=== PATIENT | female | born 1995 | race Caucasian/White ===

== ENCOUNTER → 2020-06-04 13:23 | Outpatient (CLI) | payer OTHER, SELFPAY ==
--- NOTE | 2020-06-04 13:26 | ECG_ITS ---
APPROVED REPORT Exam: Resting ECG HR:87 bpm ECG Measurements Heart Rate 87 AXES NM 152 P 74 QRSd 78 QRS 73 QT 352 T 39 QTc 423 Conclusion Normal sinus rhythm Right atrial enlargement Borderline ECG Electronically signed by : Neville Zaldivar, 06/04/2020 18:43:12
== END ==
PROVIDERS: Visit Provider Nurse Practitioner Psychiatric/Mental Health
DX: Z79.899 Other long term (current) drug therapy (principal)
CPT/HCPCS: 93005

== ENCOUNTER → 2020-06-16 08:35 | Outpatient (CLI) | payer OTHER, SELFPAY ==
--- NOTE | 2020-06-16 08:54 | ECG_ITS ---
APPROVED REPORT Exam: Resting ECG HR:76 bpm ECG Measurements Heart Rate 76 AXES PA 154 P 57 QRSd 76 QRS 43 QT 368 T 22 QTc 414 Conclusion Normal sinus rhythm Left atrial abnormality Borderline ECG Electronically signed by : Neville Zaldivar, 06/16/2020 20:08:06
== END ==
PROVIDERS: Visit Provider Nurse Practitioner Psychiatric/Mental Health
DX: Z79.899 Other long term (current) drug therapy (principal)
CPT/HCPCS: 93005

== ENCOUNTER → 2020-07-22 09:15 | Outpatient (CLI) | payer OTHER, SELFPAY ==
--- NOTE | 2020-07-22 09:19 | XR_ITS ---
PROCEDURE: XR IVP W KUB CLINICAL INDICATION: RECURRENT UTI COMPARISON: No exams were available for comparison FINDINGS: Pitch Filler exam is unremarkable. There is prompt bilateral renal excretion of contrast. No hydronephrosis. No ureteral dilatation. The incompletely filled urinary bladder has an unremarkable appearance. There is only minimal postvoid residual urine in in the bladder. IMPRESSION: Minimal postvoid residual urine otherwise negative IVP Dictated by: Maco Sánchez MD 07/22/2020 18:15 Maco Sánchez MD in [place] 07/22/2020 18:15
== END ==
PROVIDERS: PCP Family Medicine; Visit Provider Family Medicine
DX: N39.0 Urinary tract infection, site not specified (principal)
CPT/HCPCS: 74400; Q9967

== ENCOUNTER 2020-10-11 13:01 | Emergency (ER) | payer OTHER, SELFPAY ==
[2020-10-11 13:02] VITALS: BP 132/82; PULSE 101; RESP 16; TEMP 37.2; O2SAT 97; BMI 25.0
[2020-10-11 13:30] VITALS: BP 132/82; PULSE 101; RESP 16; TEMP 37.2; O2SAT 97; BMI 24.9
--- NOTE | 2020-10-11 14:03 | HMH.EDUTC ---
[facility] [place] Clinical Impression: Sinusitis Qualifiers: Sinusitis location: unspecified location Chronicity: unspecified Qualified Code(s): J32.9 - Chronic sinusitis, unspecified Disposition: Home, Self-Care Condition on Discharge: Good Instructions: Sinusitis, DI for Sinusitis Additional Instructions: *Monitor Temp, Over the counter Motrin or Tylenol as directed/as needed Tylenol every 4 hours and Motrin every 6 hours (as long as your family doctor has told you that you can take it) for fever or pain. and straight to ER if unable to lower temp less than 101.0 after medication given *Warm salt water gargles may help to soothe the throat *Throat Lozenges *Warm fluids like tea with honey may help to soothe the throat *Sleep elevated *Humidifier/Vaporizer *Flonase 2 sprays in each nostril daily but be aware that it may take 2-3 days before you notice improvement *Follow up with your Family Doctor for further evaluation and examination for GI Collect stool and bring back to outpatient lab immediately upon collection for send out Return if needed Straight to ER if any life threatening symptoms Follow up IMMEDIATELY for new or worsening symptoms or no Noticeable improvement over the next 48-72 hours. 911 for difficulty breathing or swallowing Prescriptions: Amoxicillin/Potassium Clav [Augmentin 875-125 Tablet] 1 tab PO Q12H 7 Days #14 tab Transmission Status: Received by [id number] Fluticasone Propionate [Flonase 50mcg nasal spray 16gm] 1 spr NS DAILY #1 bottle Transmission Status: Received by [id number] Referrals: Cory Rinaldi MD [Primary Care Provider] - As needed Time of Disposition: 14:15 Medical Decision Making - Lenny Inquiry Pt receiving controlled substance: No Lenny was queried for this patient: No Vital Signs: 10/11/20 13:02 10/11/20 13:30 10/11/20 14:32 Temperature 99 F 99 F 0 F L Temperature Source Oral Oral Pulse Rate 0 L Pulse Rate [Radial] 101 H 101 H Respiratory Rate 16 16 0 L Blood Pressure 000/00 L Blood Pressure [Right Arm] 132/82 132/82 Blood Pressure Mean [Right Arm] 98 98 Blood Pressure Source [Right Arm] Automatic Cuff Blood Pressure Position [Right Arm] Sitting Sitting 02 Sat by Pulse Oximetry 97 97 Oxygen Delivery Method Room Air Orders (Tests/Meds): ORDERS Category Date Time Status Ova + Parasite Exam Routine Micro 10/11/20 14:30 Received Medical Decision Narrative: Discussed with patient and will order Ova and Parasite exam to test stool and discussed transfer to ED she advised and agreed thinks blood tinged mucous was from drainage from her sinuses and recommended follow up with PCP for further evaluation and examination due to stool and GI issues and patient agreed since it has been on and off for over a year [facility] [place] - General Stated complaint: spit up blood, cough Time Seen by Provider: 10/11/20 13:10 Mode of Arrival: Ambulatory Source of Information: Patient Limitations: No Limitations Description of Symptoms (Recalled from Triage Doc. by RN): pt c/o her stool being like mush with white worms in it. She states she never has regular bms. at night she feels like her stomach is rumbling leading to her having n/v. pt also states she has been having acid reflux. pt states, I tried to talk to my doctor about it but he just blew me off. . Pt also c/o a dry cough that is productive with clear sputum. one of the times there was a scant amount of blood in the mucous. HEENT Symptoms (Recalled from RN notes): No Resp Symptoms (Recalled from RN notes): Yes (productive cough with clear sputum and a scant amt of blood x1) Skin Symptoms (Recalled from RN notes): No MS Symptoms (Recalled from RN notes): No Functional Status (Recalled from RN notes): na - History of Present Illness Provider Complaint: Patient states that she has been having sinus congestion and pressure for about 2 weeks States that she feels like it is draining
[2020-10-11 14:32] VITALS: BP 000/00; PULSE 0; RESP 0; TEMP -17.7; TEMP 0
== END 2020-10-11 14:33 | disposition home or self-care (01) ==
LOC: UTC 13:13
PROVIDERS: Emergency Provider Nurse Practitioner; PCP Family Medicine
DX: J32.9 Chronic sinusitis, unspecified (principal); Z91.040 Latex allergy status; K21.9 Gastro-esophageal reflux disease without esophagitis; F17.210 Nicotine dependence, cigarettes, uncomplicated
CPT/HCPCS: 87177; 99202; G0463

== ENCOUNTER → 2021-08-30 08:56 | Outpatient (CLI) | payer OTHER, SELFPAY ==
[2021-08-30 12:40] LABS: HCG,Quantitative < 2 mIU/ml (0-5.42)
== END ==
PROVIDERS: Visit Provider Obstetrics & Gynecology
DX: N92.6 Irregular menstruation, unspecified (principal); Z34.90 Encounter for supervision of normal pregnancy, unspecified, unspecified trimester
CPT/HCPCS: 36415; 84702

== ENCOUNTER 2021-12-18 18:48 | Emergency (ER) | payer OTHER, SELFPAY ==
[2021-12-18 19:08] VITALS: BP 155/80; PULSE 105; RESP 16; TEMP 37.2; O2SAT 97; BMI 32.3
[2021-12-18 19:08] LABS: UTC Pregnancy Test, Urine Negative (Negative)
--- NOTE | 2021-12-18 19:14 | HMH.EDUTC ---
[facility] [place] Disposition Clinical Impression: Sciatic nerve pain Qualifiers: Laterality: right Qualified Code(s): M54.31 - Sciatica, right side Disposition: Home, Self-Care Condition on Discharge: Good Instructions: Sciatica, DI for Sciatica Additional Instructions: Activity: Decrease your activity. Do not lift heavy objects or twist your back Slowly return to your usual activity. Ice: Ice helps decrease swelling and pain. Use an ice pack, or put crushed ice in a plastic bag. Cover it with a towel and place it on your low back or leg for 15 to 20 minutes every hour or as directed. Heat: Heat helps decrease pain and muscle spasms. Apply heat on the area for 20 to 30 minutes every 2 hours for as many days as directed Warm soaks in tub with epson salt may help with pain and discomfort Start oral steriods tomorrow Over the counter Motrin or Naproxen may help with pain if your Doctor has said that you can take it Return if needed Straight to ER if any life threatening symptoms Prescriptions: predniSONE [Prednisone 20mg Tab] 20 mg PO BID #10 tab Transmission Status: Re[facility] by [facility] Referrals: Cory Rinaldi MD [Primary Care Provider] - As needed Forms: Work/School Release Medical Decision Making - Lenny Inquiry Pt receiving controlled substance: No Lenny was queried for this patient: No Vital Signs: 12/18/21 19:08 Temperature 99.0 F Temperature Source Oral Pulse Rate [Left] 105 H Respiratory Rate 16 Blood Pressure [Right Arm] 155/80 H Blood Pressure Mean [Right Arm] 105 02 Sat by Pulse Oximetry 97 - Lab Data Lab results reviewed: Yes: I reviewed the patient's lab results. Lab Results 12/18/21 19:03: Tst Clinic Negative Orders (Tests/Meds): ED MEDICATIONS Discontinued Medications Generic Name Dose Route Start Last Admin Trade Name Freq PRN Reason Stop Dose Admin Ketorolac Tromethamine 60 mg 12/18/21 19:17 12/18/21 19:26 Ketorolac 60mg/2ml Vial IM 12/18/21 19:18 60 mg ONCE ONE Administration Methylprednisolone Sodium Succinate 125 mg 12/18/21 19:17 12/18/21 19:26 Methylprednisolone Sod Succ 125mg Vial IM 12/18/21 19:18 125 mg ONCE ONE Administration [facility] [place] HPI - General Stated complaint: No accident hip and leg pain Time Seen by Provider: 12/18/21 19:14 Mode of Arrival: Ambulatory Source of Information: Patient Limitations: No Limitations Description of Symptoms (Recalled from Triage Doc. by RN): patient comes in with complaints of righthip pain that radiates down into leg. patient states that pain has been ongoing for 1.5 weeks HEENT Symptoms (Recalled from RN notes): No Resp Symptoms (Recalled from RN notes): No Skin Symptoms (Recalled from RN notes): No MS Symptoms (Recalled from RN notes): Yes Functional Status (Recalled from RN notes): n/a - History of Present Illness Provider Complaint: Patient states that she has been having pain in her right buttock area that comes around into her hip and down her upper leg for over a week State that pain is worse when she raises leg or moves certain ways Denies falling or known injury - Related Data Previous Rx's Medication Instructions Recorded alprazolam 0.25 mg tablet 0.25 mg PO BID PRN #60 tab 10/12/20 L norgest/E estradiol-E estrad 1 tab PO DAILY #84 tab 12/31/20 0.15 mg-30 mcg (84)/10 mcg(7) tabs,3mos cariprazine 3 mg capsule 3 mg PO DAILY #30 cap 10/27/21 doxepin 50 mg capsule 50 mg PO QHS #30 cap 10/27/21 vilazodone 20 mg tablet 20 mg PO DAILY 30 Days #30 tab 10/27/21 predniSONE [Prednisone 20mg 20 mg PO BID #10 tab 12/18/21 Tab] Allergies Allergy/AdvReac Type Severity Reaction Status Date / Time LATEX Allergy Intermediate I-RASH Uncoded 12/31/20 09:09 - Worker's Comp Is this a Worker's Comp case?: No [facility] History - Hepatitis A Screen Attestation statement:: This patient has been screened for Hepatitis A risk factors. I have reviewed the nando
[2021-12-18 19:35] VITALS: BP 155/80; PULSE 105; RESP 16; TEMP 37.2
== END 2021-12-18 19:37 | disposition home or self-care (01) ==
PROVIDERS: Emergency Provider Nurse Practitioner; PCP Family Medicine
DX: M54.31 Sciatica, right side (principal)
CPT/HCPCS: 81025; 96372; 99212; G0463

== ENCOUNTER → 2022-01-26 09:01 | Outpatient (CLI) | payer OTHER, SELFPAY ==
[2022-01-26 09:20] LABS: Basophils # 0.1 K/mm3 (0-0.2); Eosinophils # 0.2 K/mm3 (0.0-0.4); Eosinophils % 1.9 % (0.1-12.0); Hematocrit 46.5 % (37.0-47.0); Hemoglobin 14.1 g/dL (12.2-16.2); Lymphocytes # 1.6 K/mm3 (0.7-4.5); Lymphocytes % 16.3 % (10-50); Mean Corpuscular HGB Conc 30.4 g/dL (31.8-35.4); Mean Corpuscular Hemoglobin 28.6 pg (27.0-31.2); Mean Platelet Volume 7.4 fl (7.4-10.4); Monocytes # 0.4 K/mm3 (0.1-1.0); Monocytes % 4.4 % (1.7-9.3); Neutrophils # 7.5 K/mm3 (1.8-7.8); Neutrophils % 76.4 % (37.0-80.0); Platelet Count 452 K/mm3 (142-424); Red Blood Count 4.94 M/mm3 (4.20-5.40); Red Cell Distribution Width 14.3 % (11.5-17.5); White Blood Count 9.8 K/mm3 (4.8-10.8)
[2022-01-26 09:26] LABS: Hemoglobin A1C 5.5 % (4.0-6.0)
[2022-01-26 09:37] LABS: Alanine Aminotransferase 32 U/L (12-78); Albumin Level 3.7 g/dl (3.5-5.0); Albumin/Globulin Ratio 1.5 (1.1-1.8); Alkaline Phosphatase 141 U/L (38-126); Anion Gap 12.5 mEq/L (5-15); Aspartate Amino Transferase 31 U/L (14-36); Blood Urea Nitrogen 6 mg/dl (7-17); Carbon Dioxide 27 mmol/L (22.0-30.0); Chloride 106 mmol/L (98-107); Estimated Glomerular Filt Rate 100 ml/min (>60); GFR (African American) 121 ML/MIN (>60); Globulin 2.5 g/dL (1.3-3.2); Glucose 85 mg/dl (74-100); Potassium 4.5 mmoL/L (3.5-5.1); Sodium 141 mmol/L (136-145); Total Protein,Serum 6.2 g/dl (6.3-8.2)
[2022-01-26 09:51] LABS: Bilirubin,Total < 0.1 mg/dl (0.2-1.3)
[2022-01-26 10:00] LABS: Free Thyroxine Index 2.3 ug/dL (5.93-13.13); T4 (Thyroxine) 9.4 ug/dl (5.53-11.0); Triiodothryronine (T3) Uptake 24 % (23.5-40.5)
[2022-01-26 10:14] LABS: Thyroid Stimulating Hormone 1.47 uIU/mL (0.465-4.68)
[2022-01-26 10:46] LABS: Iron 52 ug/dL (37-170)
[2022-01-26 10:56] LABS: Total Iron Binding Capacity 391 ug/dL (265-497)
[2022-01-26 12:16] LABS: Vitamin B12 328 pg/mL (239-931)
[2022-02-06 22:07] LABS: 1,25 Dihydroxy Vitamin D 46 pg/mL (.); 1,25-Dihydroxy, Vitamin D-2 <10 pg/mL (.); 1,25-Dihydroxy, Vitamin D-3 46 pg/mL (.)
== END ==
PROVIDERS: PCP Family Medicine; Visit Provider Nurse Practitioner Psychiatric/Mental Health
DX: Z00.00 Encounter for general adult medical examination without abnormal findings (principal); Z79.899 Other long term (current) drug therapy
CPT/HCPCS: 36415; 80053; 82607; 82652; 83036; 83540; 83550; 84436; 84443; 84479; 85025

== ENCOUNTER 2022-03-18 10:38 | Emergency (ER) | payer OTHER, SELFPAY ==
[2022-03-18 12:10] VITALS: BP 117/74; PULSE 73; RESP 18; TEMP 36.6; O2SAT 100; BMI 35.3
--- NOTE | 2022-03-18 12:33 | EXP.UTC ---
Discharge Plan Disposition Patient Disposition: Home, Self-Care Condition: Good Prescriptions Prescriptions: New prednisone [prednisone] 20 mg tablet 20 mg PO BID 5 Days Qty: 10 0RF benzonatate 100 mg capsule 100 mg PO TID PRN (Reason: cough) Qty: 30 0RF amoxicillin-pot clavulanate 875-125 mg Tablet 1 tab PO Q12H Qty: 20 0RF No Action alprazolam [Xanax] 0.25 mg tablet 0.25 mg PO BID PRN (Reason: anxiety) Qty: 60 0RF Vraylar 3 mg capsule 3 mg PO DAILY Qty: 30 2RF doxepin 50 mg capsule 50 mg PO QHS Qty: 30 2RF vilazodone [Viibryd] 20 mg tablet 20 mg PO DAILY 30 Days Qty: 30 2RF Rx Instructions: must administer with a meal/food L norgest/e.estradiol-e.estrad [Seasonique] 0.15 mg-30 mcg (84)/10 mcg (7) tablets,dose pack,3 month 1 tab PO DAILY Qty: 182 0RF Referrals Follow up/Referrals: Cory Rinaldi MD [Primary Care Provider] - See instructions Activity Restrictions/Add. Instructions Additional Instructions/Restrictions: Start antibiotic today. Be sure to complete entire prescription even if feeling better Monitor temp. Tylenol every 4 hours as needed and / or ibuprofen every 6 hours as needed ( As long as your primary care physician has told you that it ok to take both. For fever/aches/pains ER if no less than 101 despite Tylenol or Motrin Humidifier/vaporizer or hot steamy shower *Tessalon Perles will not cause drowsiness but use at bedtime to help stop cough so that you may get some rest. *Start steroid today. Helps with inflammation therefore, cough and wheezing. Follow directions on the package. Reviewed side effects. Patient reports taking them before. Follow up IMMEDIATELY for new or worsening of symptoms OR no noticeable improvement over the next 48-72 hours. 911 immediately for any life threatening symptoms such as chest pain or difficulty breathing Clinical Impressions Clinical Impression: Sinusitis, Bronchitis Instructions Patient Instructions: DI for Sinusitis, Sinusitis, Acute Bronchitis Discharge ED Provider: Stephanie Mc [facility] General Stated complaint: Cough, congestion, drainage Mode of Arrival: Ambulatory Source of Information: Patient Limitations: No Limitations Time Seen by Provider: 03/18/22 12:33 Description of Symptoms (Recalled from Triage Doc. by RN): PATIENT C/O COUGH AND NASAL CONGESTION X 1 WEEK HEENT Symptoms (Recalled from RN notes): Yes Resp Symptoms (Recalled from RN notes): Yes Skin Symptoms (Recalled from RN notes): No MS Symptoms (Recalled from RN notes): No Functional Status (Recalled from RN notes): WNL History of Present Illness Provider Complaint: Patient states that she has been having sinus congestion and pressure with cough for well over a week States that she feels like it has moved into her chest and maybe have bronchtitis or something so she came in before it got worse Related Data Previous Rx's Medication Instructions Recorded alprazolam 0.25 mg tablet (Xanax) 0.25 mg PO BID PRN anxiety #60 tabs 10/12/20 cariprazine 3 mg capsule (Vraylar) 3 mg PO DAILY #30 caps 01/26/22 doxepin 50 mg capsule 50 mg PO QHS #30 caps 01/26/22 vilazodone 20 mg tablet (Viibryd) 20 mg PO DAILY 30 days #30 tabs 01/26/22 L norgest/E estradiol-E estrad 1 tab PO DAILY #182 tabs 02/13/22 0.15 mg-30 mcg (84)/10 mcg(7) tabs,3mos (Seasonique) amoxicillin 875 mg-potassium 1 tab PO Q12H #20 tabs 03/18/22 clavulanate 125 mg tablet benzonatate 100 mg capsule 100 mg PO TID PRN cough #30 caps 03/18/22 prednisone 20 mg tablet 20 mg PO BID 5 days #10 tabs 03/18/22 Allergies Allergy/AdvReac Type Severity Reaction Status Date / Time latex Allergy Verified 03/18/22 12:20 Worker's Comp Is this a Worker's Comp case?: No PFSH PFSH Medical History (Updated 03/18/22 @ 12:38 by Stephanie Mc APRN) Asthma Bipolar II disorder Migraine Urinary tract infection Surgical Histo
[2022-03-18 12:39] VITALS: BP 117/74; PULSE 73; RESP 18; TEMP 36.6; O2SAT 100
== END 2022-03-18 13:08 | disposition home or self-care (01) ==
PROVIDERS: Emergency Provider Nurse Practitioner; PCP Family Medicine
DX: J40 Bronchitis, not specified as acute or chronic (principal); F32.9 Major depressive disorder, single episode, unspecified
CPT/HCPCS: 99212; G0463

== ENCOUNTER 2023-03-12 08:01 | Emergency (ER) | payer OTHER, SELFPAY ==
[2023-03-12 08:15] VITALS: BP 130/86; PULSE 84; RESP 17; TEMP 36.9; O2SAT 99; BMI 32.6
--- NOTE | 2023-03-12 08:31 | EXP.UTC ---
Discharge Plan Disposition Patient Disposition: Home, Self-Care Condition: Good Prescriptions Prescriptions: New cefdinir 300 mg capsule 300 mg PO BID Qty: 20 0RF guaifenesin [Mucinex] 600 mg tablet extended release 12hr 1,200 mg PO BID PRN (Reason: cough) Qty: 20 0RF fluticasone propionate [Flonase Allergy Relief] 50 mcg/actuation spray,suspension 1 - 2 spray intranasal DAILY Qty: 16 0RF Rx Instructions: administer into each nostril No Action L norgest/e.estradiol-e.estrad [Seasonique] 0.15 mg-30 mcg (84)/10 mcg (7) Tablets,Dose Pack,3 Month 1 tab PO DAILY vilazodone 20 mg tablet 20 mg PO DAILY Patient Comments: TAKE ONE TABLET BY MOUTH EVERY DAY --TAKE WITH FOOD-- Vraylar 3 mg capsule 3 mg PO DAILY Patient Comments: TAKE ONE CAPSULE BY MOUTH EVERY DAY Referrals Follow up/Referrals: Cory Rinaldi MD [Primary Care Provider] - See instructions Activity Restrictions/Add. Instructions Additional Instructions/Restrictions: *Monitor Temp, Over the counter Motrin or Tylenol as directed/as needed Tylenol every 4 hours and Motrin every 6 hours (as long as your family doctor has told you that you can take it) for fever or pain. and straight to ER if unable to lower temp less than 101.0 after medication given *Warm salt water gargles may help to soothe the throat *Throat Lozenges? *Warm fluids like tea with honey may help to soothe the throat? *Sleep elevated *Humidifier/Vaporizer *Flonase 2 sprays in each nostril daily but be aware that it may take 2-3 days before you notice improvement Your throat swab was sent for culture. Those results are typically sent to your primary care. Be sure to follow up in 2-3 days with your family doctor/primary care physician if no improvement so they can review those result and treat if necessary. If you don?t have a primary care doctor, I recommend you get one but in the mean time, you will have to return to a walk in clinic Follow up IMMEDIATELY for new or worsening symptoms or no Noticeable improvement over the next 48-72 hours. 911 for difficulty breathing or swallowing *Increase fluids. Water not Soda or Tea *Be SURE to follow up anytime for new or worsening symptoms with your family doctor. AND in 48 hours for urine culture results with your family doctor, if you do not have a doctor then you may call back to the [facility] for urine culture results and further treatment. We do recommend that you choose and establish care with a Primary Care Physician. ?AND follow up with them ?in 10-14 days to repeat UA to ensure infection is resolved and blood no longer present *Be sure to let your PCP know that we sent urine cultures from the [facility] so they can follow up to ensure that you area the on the correct antibiotic Call your doctor office and make appointment for 48 hours (2 days from today) ?to follow up and get the results of your urine culture and further treatment Clinical Impressions Clinical Impression: Sinusitis Instructions Patient Instructions: DI for Sinusitis, Sinusitis, DI for Urinary Tract Infection (UTI), Urinary Tract Infection Discharge ED Provider: Stephanie Mc [facility] [place] HPI General Stated complaint: COUGHING GREEN STUFF, SORE THROAT Mode of Arrival: Ambulatory Source of Information: Patient Limitations: No Limitations Time Seen by Provider: 03/12/23 08:31 Description of Symptoms (Recalled from Triage Doc. by RN): PATIENT C/O COUGH WITH GREEN MUCOUS, SORE THROAT, FREQUENT URINATION AND LOW BACK PAIN X 2 DAYS HEENT Symptoms (Recalled from RN notes): Yes Resp Symptoms (Recalled from RN notes): Yes Skin Symptoms (Recalled from RN notes): No MS Symptoms (Recalled from RN notes): No Functional Status (Recalled from RN notes): WNL History of Present Illness Provider Complaint: Patient states that she thinks she may have a sinus infection and UTI states that she started feeling bad last w
[2023-03-12 08:47] LABS: Apearance,Urine Clear (Clear); Bilirubin,Urine Negative (Negative); Blood, Urine Trace (Negative); Color,Urine Dark Yellow (Yellow); Glucose,Urine (UA) Negative (Negative); Ketones,Urine Negative (Negative); PH,Urine 7.5 (5.0-8.5); Protein,Urine Trace (Negative); UTC Leukocyte Esterase,Urine 1+ (Negative); UTC Nitrate,Urine Negative (Negative); Urobilinogen,Urine 0.2 EU/dl (0.2)
[2023-03-12 08:48] LABS: UTC Strep Screen (Rapid) Negative (Negative)
[2023-03-12 08:50] VITALS: BP 130/86; PULSE 84; RESP 17; TEMP 36.9; O2SAT 99
== END 2023-03-12 08:56 | disposition home or self-care (01) ==
PROVIDERS: Emergency Provider Nurse Practitioner; PCP Family Medicine
DX: J01.90 Acute sinusitis, unspecified (principal); N39.0 Urinary tract infection, site not specified; F17.210 Nicotine dependence, cigarettes, uncomplicated; J45.909 Unspecified asthma, uncomplicated; F31.81 Bipolar II disorder
CPT/HCPCS: 81003; 87880; 99212; 99214; G0463

== ENCOUNTER 2023-04-21 12:41 | Emergency (ER) | payer OTHER, SELFPAY ==
[2023-04-21 13:10] VITALS: BP 147/78; PULSE 89; RESP 20; TEMP 36.5; O2SAT 97; BMI 36.1
--- NOTE | 2023-04-21 13:22 | EXP.UTC ---
Discharge Plan Disposition Patient Disposition: Home, Self-Care Condition: Good Prescriptions Prescriptions: New amoxicillin [amoxicillin] 500 mg tablet 500 mg PO TID 10 Days Qty: 30 0RF benzonatate [benzonatate] 100 mg capsule 100 mg PO TIDP PRN (Reason: Cough) Qty: 30 0RF No Action L norgest/e.estradiol-e.estrad [Daysee] 0.15 mg-30 mcg (84)/10 mcg (7) tablets,dose pack,3 month 1 tab PO DAILY Patient Comments: TAKE ONE TABLET BY MOUTH EVERY DAY DIRECTED vilazodone 20 mg tablet 20 mg PO DAILY Patient Comments: TAKE ONE TABLET BY MOUTH EVERY DAY --TAKE WITH FOOD-- Vraylar 3 mg capsule 3 mg PO DAILY Patient Comments: TAKE ONE CAPSULE BY MOUTH EVERY DAY Referrals Follow up/Referrals: Cory Rinaldi MD [Primary Care Provider] - See instructions Activity Restrictions/Add. Instructions Additional Instructions/Restrictions: Drink plenty of fluids. Take tylenol or ibuprofen for pain or fever. Take the medications as directed. Follow up with your regular doctor. GO TO THE ER FOR ANY WORSENING SYMPTOMS Clinical Impressions Clinical Impression: Pharyngitis, Exposure to 2019 novel coronavirus Instructions Patient Instructions: Strep Throat, DI for Strep Throat Discharge ED Provider: Hugo Camacho [facility] General Stated complaint: sore throat, cough, green phlem Time Seen by Provider: 04/21/23 13:22 History of Present Illness Provider Complaint: She states that for the past 2 days she has had a worsening sore throat. Related Data Home Medications Medication Instructions Recorded Confirmed L norgest/E estradiol-E estrad 1 tab PO DAILY 04/21/23 04/21/23 0.15 mg-30 mcg (84)/10 mcg(7) tabs,3mos (Daysee) cariprazine 3 mg capsule (Vraylar) 3 mg PO DAILY 04/21/23 04/21/23 vilazodone 20 mg tablet 20 mg PO DAILY 04/21/23 04/21/23 Previous Rx's Medication Instructions Recorded amoxicillin 500 mg tablet 500 mg PO TID 10 days #30 tabs 04/21/23 benzonatate 100 mg capsule 100 mg PO TIDP PRN Cough #30 caps 04/21/23 Allergies Allergy/AdvReac Type Severity Reaction Status Date / Time latex Allergy Verified 02/28/23 16:15 [facility] Disclaimer: The information contained in this section may have been updated after the patient was seen, as this information can be updated by other users. Medical History Asthma Bipolar II disorder Migraine Surgical History History of appendectomy History of surgery MRSA in armpit Family History Other Asthma Diabetes FHx: mental illness Substance abuse Social History Smoking Status: Current every day smoker alcohol intake: never substance use type: denies use current occupational status: employed and unemployed Travel in the last 8 weeks: None number of children: 1 ROS Obtained: Yes All systems reviewed & no additional complaints except as documented Constitutional Constitutional: Reports chills and Reports fever(s) Eyes Eyes: Denies eye discharge ENT Ears, Nose, Mouth, and Throat: Reports as per HPI Cardiovascular Cardiovascular: Denies chest pain Respiratory Respiratory: Denies chest congestion and Reports cough Gastrointestinal Gastrointestingal: Reports nausea; Denies abdominal pain, constipation, cramping, diarrhea or vomiting Musculoskeletal Musculoskeletal: Denies arthralgias Integumentary/Breasts Skin/Breast: Denies rash Neurologic Neurologic: Denies paresthesias Physical Exam General General appearance: alert and in no apparent distress Head Head exam: atraumatic, normocephalic and normal inspection Eye Eye exam: Present normal appearance, PERRL and EOMI ENT ENT exam: Present mucous membranes moist and normal external ear exam Expanded EN
[2023-04-21 13:31] LABS: UTC Strep Screen (Rapid) Negative (Negative)
[2023-04-21 13:47] VITALS: BP 147/78; PULSE 89; RESP 20; TEMP 36.5; O2SAT 97
== END 2023-04-21 13:59 | disposition home or self-care (01) ==
PROVIDERS: Emergency Provider Nurse Practitioner Family; PCP Family Medicine
DX: J02.9 Acute pharyngitis, unspecified (principal); R05.9 Cough, unspecified; R09.89 Other specified symptoms and signs involving the circulatory and respiratory systems; R50.9 Fever, unspecified; R11.0 Nausea; Z20.822 Contact with and (suspected) exposure to COVID-19; F17.210 Nicotine dependence, cigarettes, uncomplicated; J45.909 Unspecified asthma, uncomplicated; Z20.818 Contact with and (suspected) exposure to other bacterial communicable diseases
CPT/HCPCS: 87635; 87880; 99212; 99214; G0463

== ENCOUNTER 2023-09-19 14:13 | Outpatient (CLI) | payer OTHER, SELFPAY ==
--- NOTE | 2023-09-19 14:13 | US_ITS ---
PROCEDURE: US TRANSVAGINAL CLINICAL INDICATION: Pelvic Pain/Endometriosis COMPARISON: No exams were available for comparison FINDINGS: Transvaginal sonographic images of the pelvis were obtained. UTERUS: 8.4cm x 3.9 cmx 4.1cm anteverted with a combined endometrial thickness of 7.4mm. There is a posterior fibroid measuring 2.6 cm x 2.0 cm x 2.2 cm. There is a nabothian cyst in the cervix. LEFT OVARY: 2.6 cmx1.8 cmx2.1cm with a volume of 5ml. There is a follicle measuring 1.1 cm x 0.9 cm x 1.2 cm. RIGHT OVARY: 2.1cmx 1.7 cmx1.2cm with a volume of 2.2ml. There are multiple small follicles in the right ovary. Both ovaries are seen and appear normal. Doppler flow to both ovaries are seen. There is no fluid in the cul-de-sac. IMPRESSION: 1. Anteverted uterus normal in shape and size. The endometrium is normal. 2. There appears to be a posterior fibroid measuring 2.6 cm. 3. Both left and right ovaries are seen and appear normal. There is a 1.2 cm follicle in the left ovary. 4. No fluid in the cul-de-sac. Dictated by: Sergio Ge MD 09/19/2023 16:00 Sergio Ge MD in [place] 09/19/2023 16:00
[2023-09-19 15:31] LABS: Thyroid Stimulating Hormone 2.55 uIU/mL (0.465-4.68)
== END 2023-09-19 23:59 | disposition home or self-care (01) ==
LOC: RAD 14:13
PROVIDERS: PCP Obstetrics & Gynecology; Visit Provider Obstetrics & Gynecology
DX: R10.2 Pelvic and perineal pain (principal); N80.9 Endometriosis, unspecified
CPT/HCPCS: 36415; 76830; 84443

== ENCOUNTER 2023-09-26 09:21 | Emergency (ER) | payer OTHER, SELFPAY ==
[2023-09-26 09:25] VITALS: BP 116/64; PULSE 80; RESP 18; TEMP 36.9; O2SAT 100; BMI 37.4
--- NOTE | 2023-09-26 09:35 | ED_ITS ---
Discharge Plan Disposition Patient Disposition: Home, Self-Care Condition: Good Prescriptions Prescriptions: New azithromycin [Zithromax] 250 mg tablet 250 mg PO UD DOSE PK Qty: 6 0RF Rx Instructions: Take two (2) tablets today, then one (1) tablet days #2 thru #5 methylprednisolone 4 mg Tablets,Dose Pack 4 mg PO DIRECTED 6 Days Qty: 21 0RF Rx Instructions: Take 1 pack as directed for 6 days ioiclgdjdvfggmi-nhhdxcvty-BS [Bromfed DM] 2-30-10 mg/5 mL Syrup 5 ml PO Q6H PRN (Reason: Cough) Qty: 240 0RF No Action Orilissa 150 mg tablet 150 mg PO DAILY Qty: 30 2RF Vraylar 3 mg capsule 3 mg PO DAILY Qty: 90 1RF vilazodone 20 mg tablet 20 mg PO DAILY Qty: 90 1RF L norgest/e.estradiol-e.estrad [Simpesse] 0.15 mg-30 mcg (84)/10 mcg (7) tablets,dose pack,3 month 1 tab PO DAILY Patient Comments: TAKE ONE TABLET BY MOUTH EVERY DAY DIRECTED Referrals Follow up/Referrals: Cory Rinaldi MD [Primary Care Provider] - See instructions Activity Restrictions/Add. Instructions Additional Instructions/Restrictions: Drink plenty of fluids. Take tylenol or ibuprofen for pain or fever. Take the medications as directed. Follow up with your regular doctor. GO TO THE ER FOR ANY WORSENING SYMPTOMS Clinical Impressions Clinical Impression: Bronchitis, Sinusitis Stand Alone Forms Stand Alone Forms: Work/School Release Instructions Patient Instructions: Sinusitis, DI for Sinusitis Discharge ED Provider: Hugo Camacho [facility] General Stated complaint: sore throat Time Seen by Provider: 09/26/23 09:32 History of Present Illness Provider Complaint: She states that for the past 2 days she has had sore throat, sinus congestion, and a cough. Related Data Home Medications Medication Instructions Recorded Confirmed L norgest/E estradiol-E estrad 1 tab PO DAILY 09/26/23 09/26/23 0.15 mg-30 mcg (84)/10 mcg(7) tabs,3mos (Simpesse) Previous Rx's Medication Instructions Recorded cariprazine 3 mg capsule (Vraylar) 3 mg PO DAILY #90 caps 08/10/23 vilazodone 20 mg tablet 20 mg PO DAILY #90 tabs 08/10/23 elagolix 150 mg tablet (Orilissa) 150 mg PO DAILY #30 tabs 09/18/23 azithromycin 250 mg tablet 250 mg PO UD DOSE PK #6 tabs 09/26/23 (Zithromax) lqcbczwigtdntln-xpmvijhxixzpsww-HT 5 ml PO Q6H PRN Cough #240 mL 09/26/23 2 mg-30 mg-10 mg/5 mL oral syrup (Bromfed DM) methylprednisolone 4 mg tablets in 4 mg PO DIRECTED 6 days #21 tabs 09/26/23 a dose pack Allergies Allergy/AdvReac Type Severity Reaction Status Date / Time latex Allergy Verified 09/26/23 09:37 [facility] Disclaimer: The information contained in this section may have been updated after the patient was seen, as this information can be updated by other users. Medical History (Updated 09/26/23 @ 10:18 by Hugo Camacho APRN) Endometriosis Migraine Asthma Bipolar II disorder Surgical History H/O cystoscopy History of surgery History of appendectomy Family History Other Asthma Diabetes FHx: mental illness Substance abuse Social History Smoking Status: Current every day smoker alcohol intake: never substance use type: denies use current occupational status: employed and unemployed Travel in the last 8 weeks: None number of children: 1 ROS Obtained: Yes All systems reviewed & no additional complaints except as documented Constitutional Constitutional: Reports chills and Reports fever(s) Eyes Eyes: Denies eye discharge ENT Ears, Nose, Mouth, and Throat: Reports as per HPI Cardiovascular Cardiovascular: Denies chest pain Respiratory Respiratory: Denies chest congestion and Reports cough Gastrointestinal Gastrointestingal: Reports nausea; Denies abdominal pain, constipation, cramping, diarrhea or vomiting Musculoskeletal Musculoskeletal: Denies arthralgias Integumentary/Breasts Skin/Breast: Denies rash Neurologic Neurologic: Denies paresthesias Physical Exam General General appearance: alert and in no apparent distress Head Head exam: atraumatic, normocephalic and normal inspection Eye Eye exam: Present normal appearance, PERRL and EOMI ENT ENT exam: Present mucous membranes moist and normal external ear exam Expanded ENT Exam TM/Canal exam: Bilateral TM: erythema and bulging Nose exam: Absent sinus tenderness Mouth exam: Present normal external inspection; Absent drooling Teeth exam: Present normal inspection Throat exam: Present tonsillar erythema, tonsillomegaly and tonsillar exudate Neck Neck exam: Present normal inspection, full ROM and trachea midline; Absent tenderness, meningismus or lymphadenopathy Chest Chest inspection: Present normal inspection and symmetric chest wall rise; Absent tenderness Respiratory Respiratory exam: Present normal lung sounds bilaterally; Absent respiratory distress, wheezes or stridor Cardiovascular Cardiovascular exam: Present regular rate and normal rhythm; Absent systolic murmur or diastolic murmur Abdominal Exam Abdominal exam: Present soft and normal bowel sounds; Absent distention, tenderness, guarding, rebound or rigidity Extremities Exam Extremities exam: Present normal inspection and normal capillary refill; Absent calf tenderness Back Exam Back exam: Present normal inspection and full ROM; Absent tenderness, CVA tenderness (R) or CVA tenderness (L) Neurological Exam Neurological exam: Present alert, oriented X3 and CN II-XII intact Psychiatric Psychiatric exam: Present normal affect and normal mood Skin Skin exam: Present warm, dry, intact and normal color Medical Decision Making Medical Records Medical records reviewed: No I reviewed the patient's medical records. Lenny Inquiry Pt receiving controlled substance: No Lab Data Lab results reviewed: Yes I reviewed the patient's lab results.
[2023-09-26 09:41] LABS: UTC Strep Screen (Rapid) Negative (Negative)
[2023-09-26 10:23] VITALS: BP 116/64; PULSE 80; RESP 18; TEMP 36.9; O2SAT 100
== END 2023-09-26 10:23 | disposition home or self-care (01) ==
PROVIDERS: Emergency Provider Nurse Practitioner Family; PCP Family Medicine
DX: J40 Bronchitis, not specified as acute or chronic (principal); J01.90 Acute sinusitis, unspecified; J02.9 Acute pharyngitis, unspecified; R09.81 Nasal congestion; R05.9 Cough, unspecified; N80.9 Endometriosis, unspecified; G43.909 Migraine, unspecified, not intractable, without status migrainosus; F31.9 Bipolar disorder, unspecified; F17.210 Nicotine dependence, cigarettes, uncomplicated
CPT/HCPCS: 87880; 99212; 99214; G0463

== ENCOUNTER 2024-02-10 13:19 | Emergency (ER) | payer OTHER, SELFPAY ==
[2024-02-10 13:31] VITALS: BP 124/72; PULSE 91; RESP 20; TEMP 36.7; O2SAT 99; BMI 34.5
--- NOTE | 2024-02-10 13:36 | EXP.UTC ---
Discharge Plan Disposition Patient Disposition: Home, Self-Care Condition: Good Prescriptions Prescriptions: New amoxicillin 875 mg tablet 875 mg PO Q12H Qty: 20 0RF methylprednisolone 4 mg Tablets,Dose Pack 4 mg PO DIRECTED 6 Days Qty: 21 0RF Rx Instructions: Take 1 pack as directed for 6 days qqxokperytodkuo-yojrytnum-AI [Bromfed DM] 2-30-10 mg/5 mL Syrup 5 ml PO Q6H PRN (Reason: Cough) Qty: 240 0RF No Action vilazodone 20 mg tablet 20 mg PO DAILY Patient Comments: TAKE 1 TABLET BY MOUTH ONCE DAILY Vraylar 3 mg capsule 3 mg PO DAILY Patient Comments: TAKE 1 CAPSULE BY MOUTH ONCE DAILY Orilissa 150 mg tablet 150 mg PO DAILY Patient Comments: TAKE 1 TABLET BY MOUTH ONCE DAILY Referrals Follow up/Referrals: Cory Rinaldi MD [Primary Care Provider] - See instructions Activity Restrictions/Add. Instructions Additional Instructions/Restrictions: Drink plenty of fluids. Take tylenol or ibuprofen for pain or fever. Take the medications as directed. Follow up with your regular doctor. GO TO THE ER FOR ANY WORSENING SYMPTOMS Clinical Impressions Clinical Impression: Sinusitis Stand Alone Forms Stand Alone Forms: Work/School Release Instructions Patient Instructions: Sinusitis, DI for Sinusitis Print Language Print Language: Yi Discharge ED Provider: Hugo Camacho [facility] General Stated complaint: cough, sore throat Mode of Arrival: Ambulatory Source of Information: Patient Time Seen by Provider: 02/10/24 13:36 Description of Symptoms (Recalled from Triage Doc. by RN): SORE THROAT, COUGH AND GREEN NASAL DRAINAGE HEENT Symptoms (Recalled from RN notes): Yes Resp Symptoms (Recalled from RN notes): Yes Skin Symptoms (Recalled from RN notes): No MS Symptoms (Recalled from RN notes): No Functional Status (Recalled from RN notes): wnl Related Data Home Medications ?Medication ?Instructions ?Recorded ?Confirmed cariprazine 3 mg capsule (Vraylar) 3 mg PO DAILY 02/10/24 02/10/24 elagolix 150 mg tablet (Orilissa) 150 mg PO DAILY 02/10/24 02/10/24 vilazodone 20 mg tablet 20 mg PO DAILY 02/10/24 02/10/24 Previous Rx's ?Medication ?Instructions ?Recorded amoxicillin 875 mg tablet 875 mg PO Q12H #20 tabs 02/10/24 iosfdguwkeivfpa-pfrkrbckobwrvzh-HV 5 ml PO Q6H PRN Cough #240 mL 02/10/24 2 mg-30 mg-10 mg/5 mL oral syrup (Bromfed DM) methylprednisolone 4 mg tablets in 4 mg PO DIRECTED 6 days #21 tabs 02/10/24 a dose pack Allergies Allergy/AdvReac Type Severity Reaction Status Date / Time latex Allergy Verified 02/05/24 13:57 Worker's Comp Is this a Worker's Comp case?: No [facility] Disclaimer: The information contained in this section may have been updated after the patient was seen, as this information can be updated by other users. Medical History Endometriosis Migraine Asthma Bipolar II disorder Surgical History H/O cystoscopy right ovary History of surgery MRSA in armpit History of appendectomy Family History Other Asthma Diabetes FHx: mental illness Substance abuse Social History Smoking Status: Current every day smoker alcohol intake: never substance use type: denies use current occupational status: employed and unemployed Travel in the last 8 weeks: None number of children: 1 ROS Obtained: Yes All systems reviewed & no additional complaints except as documented Constitutional Constitutional: Reports poor appetite Eyes Eyes: Reports system reviewed and no additional complaints, except as documented ENT Ears, Nose, Mouth, and Throat: Reports as per HPI Cardiovascular Cardiovascular: Reports system reviewed and no additional complaints, except as documented and Denies chest pain Respiratory Respiratory: Denies shortness of breath, Denies chest congestion, Reports cough, Denies stridor and Denies wheezing Gastrointestinal Gastrointestingal: Reports system reviewed and no additional complaints, except as documented; Denies abdominal pain, diarrhea or vomiting Musculoskeletal Musculoskeletal: Reports system reviewed and no additional complaints, except as documented and Denies arthralgias Integumentary/Breasts Skin/Breast: Reports system reviewed and no additional complaints, except as documented and Denies rash Neurologic Neurologic: Denies paresthesias Allergic/Immunologic Allergic/Immunologic: Denies wheezing Physical Exam General General appearance: alert and in no apparent distress Eye Eye exam: Present normal appearance, PERRL and EOMI ENT ENT exam: Present mucous membranes moist and normal external ear exam Expanded ENT Exam External ear exam: Present normal external inspection TM/Canal exam: Bilateral TM: erythema and bulging Nose exam: Absent sinus tenderness Nasal speculum exam: Bilateral: normal Mouth exam: Present normal external inspection; Absent drooling Teeth exam: Present normal inspection Throat exam: Present tonsillar erythema and tonsillomegaly Neck Neck exam: Present normal inspection, full ROM and trachea midline; Absent tenderness, lymphadenopathy or thyromegaly Chest Chest inspection: Present normal inspection and symmetric chest wall rise; Absent tenderness or rash Respiratory Respiratory exam: Present normal lung sounds bilaterally; Absent respiratory distress, wheezes, stridor or accessory muscle use Cardiovascular Cardiovascular exam: Present regular rate, normal rhythm and normal heart sounds Abdominal Exam Abdominal exam: Present soft; Absent distention, tenderness, guarding, rebound or rigidity Extremities Exam Extremities exam: Present normal inspection, full ROM and normal capillary refill; Absent tenderness or calf tenderness Back Exam Back exam: Present normal inspection and full ROM; Absent tenderness Neurological Exam Neurological exam: Present alert and oriented X3 Psychiatric Psychiatric exam: Present normal affect and normal mood Skin Skin exam: Present warm, dry, intact and normal color Lymphatic Lymphatic Findings: no adenopathy Medical Decision Making Medical Records Medical records reviewed: No I reviewed the patient's medical records. Screening: Per USPSTF and CDC recommendations, given the prevalence of disease in our region, it is our hospital?s policy to screen for HIV and viral Hepatitis for all patients aged 18 and over and those with ongoing risk factors. Lenny Inquiry Pt receiving controlled substance: No Vital Signs: 02/10/24 13:31 Temperature 98.1 F Temperature Source Oral Pulse Rate [Left Radial] 91 H Respiratory Rate 20 Blood Pressure [Left Arm] 124/72 Blood Pressure Mean [Left Arm] 89 02 Sat by Pulse Oximetry 99 Lab Data Lab results reviewed: Yes I reviewed the patient's lab results.
[2024-02-10 13:42] LABS: UTC Strep Screen (Rapid) Negative (Negative)
[2024-02-10 14:00] VITALS: BP 124/72; PULSE 91; RESP 20; TEMP 36.7
== END 2024-02-10 14:03 | disposition home or self-care (01) ==
PROVIDERS: Emergency Provider Nurse Practitioner Family; PCP Family Medicine
DX: J01.90 Acute sinusitis, unspecified (principal)
CPT/HCPCS: 87880; 99213; G0381

== ENCOUNTER 2024-06-11 08:02 | Emergency (ER) | payer OTHER, SELFPAY ==
[2024-06-11 08:15] VITALS: BP 112/57; PULSE 68; RESP 18; TEMP 36.9; O2SAT 98; BMI 40.1
--- NOTE | 2024-06-11 08:35 | EXP.UTC ---
Discharge Plan Disposition Patient Disposition: Home, Self-Care Condition: Good Prescriptions Prescriptions: New benzonatate 100 mg capsule 100 mg PO TID PRN (Reason: cough) Qty: 30 0RF methylprednisolone [Medrol (Tank)] 4 mg tablets,dose pack See Rx Instructions .Route .COMPLEX 6 Days Qty: 21 0RF Rx Instructions: taper pack; amoxicillin-pot clavulanate 875-125 mg Tablet 1 tab PO Q12H Qty: 20 0RF No Action vilazodone 20 mg tablet 20 mg PO DAILY Patient Comments: TAKE 1 TABLET BY MOUTH ONCE DAILY Vraylar 3 mg capsule 3 mg PO DAILY Patient Comments: TAKE 1 CAPSULE BY MOUTH ONCE DAILY L norgest/e.estradiol-e.estrad [Seasonique] 0.15 mg-30 mcg (84)/10 mcg (7) Tablets,Dose Pack,3 Month 1 tab PO DAILY Referrals Follow up/Referrals: Cory Rinaldi MD [Primary Care Provider] - See instructions Activity Restrictions/Add. Instructions Additional Instructions/Restrictions: Start antibiotic today. Be sure to complete entire prescription even if feeling better Monitor temp. Tylenol every 4 hours as needed and / or ibuprofen every 6 hours as needed ( As long as your primary care physician has told you that it ok to take both. For fever/aches/pains ER if no less than 101 despite Tylenol or Motrin Humidifier/vaporizer or hot steamy shower *Tessalon Perles will not cause drowsiness but use at bedtime to help stop cough so that you may get some rest. *Start steroid today. Helps with inflammation therefore, cough and wheezing. Follow directions on the package. Reviewed side effects. Patient reports taking them before. Follow up IMMEDIATELY for new or worsening of symptoms OR no noticeable improvement over the next 48-72 hours. 911 immediately for any life threatening symptoms such as chest pain or difficulty breathing Clinical Impressions Clinical Impression: Bronchitis, Sinusitis Instructions Patient Instructions: DI for Sinusitis, Sinusitis Print Language Print Language: Colombian Discharge ED Provider: Stephanie Mc [facility] HPI General Stated complaint: sore throat, coughing up green mucus, congestion Mode of Arrival: Ambulatory Source of Information: Patient Limitations: No Limitations Time Seen by Provider: 06/11/24 08:35 Description of Symptoms (Recalled from Triage Doc. by RN): PATIENT C/O COUGH WITH GREEN MUCOUS AND SORE THROAT SINCE YESTERDAY HEENT Symptoms (Recalled from RN notes): Yes Resp Symptoms (Recalled from RN notes): Yes Skin Symptoms (Recalled from RN notes): No MS Symptoms (Recalled from RN notes): No Functional Status (Recalled from RN notes): WNL History of Present Illness Provider Complaint: Patient states that she has been having sinus issues States that they have got worse since yesterday and now at times coughing up thick greenish colored mucous like she does when she has bronchitis so she came in to get checked Related Data Home Medications ?Medication ?Instructions ?Recorded ?Confirmed cariprazine 3 mg capsule (Vraylar) 3 mg PO DAILY 02/10/24 06/11/24 vilazodone 20 mg tablet 20 mg PO DAILY 02/10/24 06/11/24 L norgest/E estradiol-E estrad 1 tab PO DAILY 06/11/24 06/11/24 0.15 mg-30 mcg (84)/10 mcg(7) tabs,3mos Previous Rx's ?Medication ?Instructions ?Recorded amoxicillin 875 mg-potassium 1 tab PO Q12H #20 tabs 06/11/24 clavulanate 125 mg tablet benzonatate 100 mg capsule 100 mg PO TID PRN cough #30 caps 06/11/24 methylprednisolone 4 mg tablets in See Rx Instructions .Route 06/11/24 a dose pack (Medrol (Tank)) .COMPLEX 6 days #21 tabs Allergies Allergy/AdvReac Type Severity Reaction Status Date / Time latex Allergy Verified 02/05/24 13:57 Worker's Comp Is this a Worker's Comp case?: No [facility] Disclaimer: The information contained in this section may have been updated after the patient was seen, as this information can be updated by other users. Medical History Endometriosis Migraine Asthma Bipolar II disorder Surgical History H/O cystoscopy right ovary History of surgery MRSA in armpit History of appendectomy Family History Other Asthma Diabetes FHx: mental illness Substance abuse Social History Smoking Status: Current every day smoker alcohol intake: never substance use type: denies use current occupational status: employed and unemployed Travel in the last 8 weeks: None number of children: 1 Have you lived/traveled outside [place] in past 30 days?: No Contact w/someone who lives/traveled outside [place] past 30 days?: No Exposure to someone with infectious disease in past 14 days?: No Do you have a fever (greater than 100.4 F or 38 C)?: No Have you tested positive for COVID-19: No Exposed to someone with COVID-19 in past 14 days?: No Do you have a sore throat?: Yes Do you have a cough?: Yes Do you have any weakness?: No Do you have any diarrhea?: No Are you experiencing any unusual bleeding?: No Do you have any muscle aches/pain?: No Do you have any abdominal pain?: No Are you experiencing loss of taste or smell?: No ROS Obtained: Yes All systems reviewed & no additional complaints except as documented and Yes Systems reviewed as appropriate & no additional complaints except as documented Constitutional Constitutional: Reports system reviewed and no additional complaints, except as documented, Reports as per HPI and Reports headache(s) ENT Ears, Nose, Mouth, and Throat: Reports system reviewed and no additional complaints, except as documented, Reports as per HPI, Reports headache(s), Reports sinus pain and Reports sinus pressure Cardiovascular Cardiovascular: Reports system reviewed and no additional complaints, except as documented and Reports as per HPI Respiratory Respiratory: Reports system reviewed and no additional complaints, except as documented, Reports as per HPI, Denies shortness of breath, Reports chest congestion, Reports cough, Denies pain with cough and Denies wheezing Gastrointestinal Gastrointestingal: Reports system reviewed and no additional complaints, except as documented and as per HPI Neurologic Neurologic: Reports headache(s) Allergic/Immunologic Allergic/Immunologic: Denies wheezing Physical Exam General General appearance: alert and in no apparent distress ENT ENT exam: Present mucous membranes moist Expanded ENT Exam Nose exam: Present sinus tenderness Throat exam: Present other (PND ) Respiratory Respiratory exam: Present normal lung sounds bilaterally; Absent respiratory distress or wheezes Cardiovascular Cardiovascular exam: Present regular rate, normal rhythm and normal heart sounds Abdominal Exam Abdominal exam: Present soft and normal bowel sounds; Absent distention or tenderness Neurological Exam Neurological exam: Present alert, oriented X3 and normal gait Medical Decision Making Medical Records Screening: Per USPSTF and CDC recommendations, given the prevalence of disease in our region, it is our hospital?s policy to screen for HIV and viral Hepatitis for all patients aged 18 and over and those with ongoing risk factors. Lenny Inquiry Pt receiving controlled substance: No Lenny was queried for this patient: No Vital Signs: 06/11/24 08:15 Temperature 98.5 F Temperature Source Oral Pulse Rate [Left Brachial] 68 Respiratory Rate 18 Blood Pressure [Left Arm] 112/57 L Blood Pressure Mean [Left Arm] 75 Blood Pressure Source [Left Arm] Automatic Cuff Blood Pressure Position [Left Arm] Sitting 02 Sat by Pulse Oximetry 98 Oxygen Delivery Method Room Air
[2024-06-11 08:44] LABS: UTC Strep Screen (Rapid) Negative (Negative)
[2024-06-11 08:45] LABS: UTC Influenza A Antigen Negative (Negative); UTC Influenza B Antigen Negative (Negative)
[2024-06-11 08:46] VITALS: BP 112/57; PULSE 68; RESP 18; TEMP 36.9; O2SAT 98
== END 2024-06-11 08:50 | disposition home or self-care (01) ==
PROVIDERS: Emergency Provider Nurse Practitioner; PCP Family Medicine
DX: J20.9 Acute bronchitis, unspecified (principal); J32.9 Chronic sinusitis, unspecified
CPT/HCPCS: 87804; 87880; 99213; G0381

== ENCOUNTER 2024-12-23 16:04 | Outpatient (CLI) | payer OTHER, SELFPAY ==
[2024-12-23 16:14] LABS: Adenovirus F 40/41, stool Not Detected (NotDetected); Clostridium Difficile A/B, PCR Not Detected (NotDetected); Cyclospora Cayetanesis Not Detected (NotDetected); Plesimonas Shigalloides, PCR Not Detected (NotDetected); Salmonella, PCR Not Detected (NotDetected); Shiga-like toxin E coli Not Detected (NotDetected); Shigella Enterovasive E coli Not Detected (NotDetected); Vibrio, PCR Not Detected (NotDetected); Yersinia Entercolitica, PCR Not Detected (NotDetected)
== END 2024-12-23 23:59 | disposition home or self-care (01) ==
LOC: LAB 16:07
PROVIDERS: PCP Family Medicine; Visit Provider Nurse Practitioner Family
DX: R19.8 Other specified symptoms and signs involving the digestive system and abdomen (principal)
CPT/HCPCS: 87507

== ENCOUNTER 2024-12-25 11:15 | Outpatient (CLI) | payer OTHER, SELFPAY ==
--- NOTE | 2024-12-25 11:19 | CT_ITS ---
FINAL REPORT CLINICAL HISTORY: ABD PAIN, pt stated pain around stomach area and she doesnt have normal bowel movements FINDINGS: The lung bases are clear. The liver is mildly fatty infiltrated. Gallbladder is present. The spleen is unremarkable. The adrenals are normal. The pancreas is unremarkable. The kidneys enhance appropriately. Precontrast images demonstrate no nephrolithiasis. No significant vascular calcification is seen. There is moderate stool throughout the colon. Uterus is anteverted. Urinary bladder is incompletely distended. Appendix is surgically absent. IMPRESSION: Mild fatty infiltration of the liver. Moderate stool throughout the colon. Reviewed, Interpreted and Dictated by Rikki Gaffney MD Transcribed by Angélica Britt Authenticated and [facility]
[2024-12-25] MEDS: SODIUM CHLORIDE 0.9% 10ML SYR (RAD ONLY) 10 ML IV (11:43)
[2024-12-25] MEDS: IOPAMIDOL-370 (76%);100ML BOTTLE 75 ML IV (11:43)
== END 2024-12-25 23:59 | disposition home or self-care (01) ==
LOC: RAD 11:16
PROVIDERS: PCP Family Medicine; Visit Provider Nurse Practitioner Family
DX: K76.0 Fatty (change of) liver, not elsewhere classified (principal); R93.3 Abnormal findings on diagnostic imaging of other parts of digestive tract; R10.9 Unspecified abdominal pain
CPT/HCPCS: 74178; Q9967

== ENCOUNTER 2025-01-19 10:39 | Day surgery (SDC) | payer OTHER, SELFPAY ==
[2025-01-14 13:43] VITALS: BMI 39.1
--- NOTE | 2025-01-14 16:19 | EXP.HP ---
History of Present Illness *Admission Date: 01/19/25 *History of present illness: Mrs. Coleman is a 29-year-old female with abdominal pain, mixed constipation and diarrhea, nausea and early satiety who is here for diagnostic colonoscopy. The examination is deemed medically necessary for diagnostic colonoscopy. The patient has been seen, interviewed and examined prior to the procedure by both myself and the anesthesia provider. [facility] Disclaimer: The information contained in this section may have been updated after the patient was seen, as this information can be updated by other users. Medical History Endometriosis Migraine Asthma Bipolar II disorder Surgical History H/O cystoscopy right ovary History of surgery MRSA in armpit History of appendectomy Family History Other Asthma Diabetes FHx: mental illness Substance abuse Social History Smoking Status: Current every day smoker alcohol intake: never substance use type: denies use current occupational status: employed Travel in the last 8 weeks?: None number of children: 1 caffeine: Yes Have you lived/traveled outside [place] in past 30 days?: No Contact w/someone who lives/traveled outside [place] past 30 days?: No Exposure to someone with infectious disease in past 14 days?: No Do you have a fever (greater than 100.4 F or 38 C)?: No Have you tested positive for COVID-19?: No Exposed to someone with COVID-19 in past 14 days?: No Do you have a sore throat?: No Do you have a cough?: No Do you have any weakness?: No Are you experiencing any nausea/vomitting?: No Do you have any diarrhea?: No Are you experiencing any unusual bleeding?: No Do you have any muscle aches/pain?: No Do you have any abdominal pain?: No Are you experiencing loss of taste or smell?: No Other Medical History Have you received the Pneumonia Vaccine: No Review of Systems Review of Systems Review of systems (narrative): Negative *Cardiovascular Comments: Negative *Gastrointestinal Comments: Negative *Genitourinary Comments: Negative *Musculoskeletal Comments: Negative *Neurologic Comments: Negative Meds Home Medications and Allergies Home Medications ?Medication ?Instructions ?Recorded ?Confirmed ?Type L norgest/E estradiol-E estrad 1 tab PO DAILY #182 tabs 12/31/24 01/19/25 Rx 0.15 mg-30 mcg (84)/10 mcg(7) tabs,3mos hydroxyzine pamoate 25 mg capsule 25 mg PO TID PRN anxiety #60 caps 01/06/25 01/19/25 Rx sodium,potassium,mag sulfates 17.5 See Rx Instructions PO .COMPLEX 01/13/25 01/19/25 Rx gram-3.13 gram-1.6 gram oral soln #354 mL (Suprep Bowel Prep Kit) brexpiprazole 2 mg tablet (Rexulti) 2 mg PO HS #30 tabs 01/14/25 01/19/25 Rx lisdexamfetamine 40 mg capsule 40 mg PO DAILY #30 caps 01/14/25 01/19/25 Rx (Vyvanse) vilazodone 40 mg tablet 40 mg PO DAILY #30 tabs 01/14/25 01/19/25 Rx methylcellulose (with sugar) oral 1 tbsp PO DAILY #454 grams 01/16/25 01/19/25 Rx powder (Citrucel (sucrose) oral powder) polyethylene glycol 3350 17 17 g PO DAILY #119 grams 01/16/25 01/19/25 Rx gram/dose oral powder (Miralax) New Prescriptions to Start Prescriptions: Allergies Allergy/AdvReac Type Severity Reaction Status Date / Time latex Allergy Rash Verified 01/19/25 11:14 Exam Data for Last 24 hours I & O for Last 24 hours: Intake & Output 01/11/25 01/12/25 01/13/25 01/14/25 23:59 23:59 23:59 23:59 Weight 235 lb *Routine HEENT Exam Head: Present normocephalic Eye: Present EOMI and PERRL ENT: Present mucous membranes moist *Routine Neck Exam Neck: Present supple *Routine Respiratory Exam Respiratory: Present CTA bilaterally *Routine Cardiovascular Exam Cardiovascular: Present RRR *Routine Abdominal Exam Abdominal: Present soft and normoactive bowel sounds; Absent tenderness *Routine Rectal Exam Rectal:: deferred *Routine Genitalia Exam Genitalia:: deferred *Routine Extremities Exam Extremities: Absent cyanosis, clubbing or edema *Routine Skin Exam Skin: Present warm; Absent rash *Routine Neurological Exam Neurological: Present alert and oriented X3 Assessment and Plan *Assessment and plan (1) Generalized abdominal pain: Status: Acute Category: Medical Code(s): R10.84 - Generalized abdominal pain (2) Constipation: Status: Acute Category: Medical Code(s): K59.00 - Constipation, unspecified (3) Diarrhea: Status: Acute Category: Medical Code(s): R19.7 - Diarrhea, unspecified (4) Bloating: Status: Acute Category: Medical Code(s): R14.0 - Abdominal distension (gaseous) (5) Nausea: Status: Acute Category: Medical Code(s): R11.0 - Nausea Plan A/P: 1. Generalized abdominal pain with mixed alternating constipation, diarrhea, bloating and nausea is the preprocedural diagnosis. The patient will be anesthetized/sedated using MAC sedation. The patient has been seen and examined. Cardiac and lung assessment prior to the examination is stable. Proceed with planned diagnostic colonoscopy.
[2025-01-19 11:18] VITALS: BP 119/86; PULSE 100; RESP 18; TEMP 36.3; O2SAT 98
[2025-01-19] MEDS: LACTATED RINGERS 1000ML 1,000 ML 50 ML IV (11:24)
[2025-01-19 11:28] LABS: Urine Pregnancy, HCG Qual. Negative (Negative)
--- NOTE | 2025-01-19 11:29 | EXP.ANES.CKL ---
[facility] Disclaimer: The information contained in this section may have been updated after the patient was seen, as this information can be updated by other users. Medical History Endometriosis Migraine Asthma Bipolar II disorder Surgical History H/O cystoscopy right ovary History of surgery MRSA in armpit History of appendectomy Family History Other Asthma Diabetes FHx: mental illness Substance abuse Social History Smoking Status: Current every day smoker alcohol intake: never substance use type: denies use current occupational status: employed Travel in the last 8 weeks?: None number of children: 1 caffeine: Yes Have you lived/traveled outside [place] in past 30 days?: No Contact w/someone who lives/traveled outside [place] past 30 days?: No Exposure to someone with infectious disease in past 14 days?: No Do you have a fever (greater than 100.4 F or 38 C)?: No Have you tested positive for COVID-19?: No Exposed to someone with COVID-19 in past 14 days?: No Do you have a sore throat?: No Do you have a cough?: No Do you have any weakness?: No Are you experiencing any nausea/vomitting?: No Do you have any diarrhea?: No Are you experiencing any unusual bleeding?: No Do you have any muscle aches/pain?: No Do you have any abdominal pain?: No Are you experiencing loss of taste or smell?: No [facility] Anesthesia Checklist Patient Identification Patient Identification: Arm Band Structural Data Admitted From: Home Planned Operative Procedure/s: Colonoscopy Consent for Planned Operative Procedure(s) Verified: Yes Verified Documents: Surgical Consent and History and Physical NPO Status Verified Time NPO: 08:50 (finished prep) Additional verifications Anesthesia Reactions: No Airway Assessment Mallampati Score:: Class II C-Spine Mobility Assessed: Yes TMJ Mobility Assessed: Yes Dentition: Good Dentition Neurological Assessment Level of Consciousness: Awake, Alert and Appropriate Anesthesia Plan Anesthesia Risk discussed: Yes Anesthesia Plan: Verified ASA Class: II Anesthesia Type: MAC
--- NOTE | 2025-01-19 11:42 | HMH.PROCNOTE ---
[facility] Procedure Note Date: 01/19/25 Time: 11:56 Procedure Note:: Colonoscopy Procedure Report: Colonoscopy with cold snare polypectomy Endoscopist: Sampson Conroy II, MD Referring physician: SEGUN Santos Date of Procedure: January 19, 2025 Equipment: Olympus [id number] adult colonoscope Sedation: MAC sedation Indication: Mrs. Coleman is a 29-year-old female with abdominal pain, mixed constipation and diarrhea, nausea and early satiety who is here for diagnostic colonoscopy. The patient does report mid abdominal pain that radiates into the back. She reports no rectal bleeding or mucus with her bowel movements. She has had no unintentional weight loss but her weight does fluctuate. The patient reports no known family history of colitis, Crohn's or colon cancer. She has had unexplained leukocytosis treated with antibiotics. The examination is deemed medically necessary for diagnostic colonoscopy. Procedure: Prior to the procedure, a history and physical exam was performed, and patient's medications and allergies were reviewed. The risks, benefits and alternatives of the sedation and procedure were discussed with the patient. All questions were answered and informed consent was obtained. The patient was brought to the procedure room. Patient identification and proposed procedure were verified by the physician and the nurse. The patient was placed in a left lateral decubitus position and the scope was passed under direct vision. Throughout the procedure, the patient's blood pressure, pulse, and oxygen saturations were monitored continuously. The colonoscopy was accomplished without difficulty. The patient tolerated the procedure well. Findings: On digital rectal examination there was normal rectal tone. There were no external hemorrhoids. The colonoscope was introduced through the anal canal to the rectum and advanced to the cecum. The ileocecal valve and appendiceal orifice were identified. The scope was advanced a short distance into the ileum which appeared grossly normal. The scope was then withdrawn into the colon. There were 2 colon polyps (descending x 1 (4 mm) and sigmoid x 1 (4 mm)). These were both removed via cold snare polypectomy. The remaining cecum, ascending, transverse, descending, sigmoid and rectum were grossly normal. There were no other mucosal abnormalities identified. Upon retroflexion within the rectum there were grade 1 internal hemorrhoids. The preparation was excellent throughout with [place] Preparation Score of 9. The cecal time was 12 minutes. Impression: 1. 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 We will discuss treatment options today. I will follow-up the polyp histology and recommend repeat screening/surveillance colonoscopy based upon the pathology.
[2025-01-19 11:58] VITALS: BP 108/63; PULSE 82; RESP 18; TEMP 36.3; O2SAT 96
[2025-01-19 12:08] VITALS: BP 116/78; PULSE 84; RESP 18; TEMP 36.3; O2SAT 96
[2025-01-19 12:18] VITALS: BP 137/87; PULSE 79; RESP 18; TEMP 36.3; O2SAT 100
[2025-01-19 12:28] VITALS: BP 124/86; PULSE 74; RESP 18; TEMP 36.3; O2SAT 100
== END 2025-01-19 12:28 | disposition home or self-care (01) ==
PROVIDERS: PCP Nurse Practitioner Family; Visit Provider Internal Medicine Gastroenterology
PROC: 0DJD8ZZ Inspection of Lower Intestinal Tract, Via Natural or Artificial Opening Endoscopic (ICD-10-PCS; CPT 45378; principal; 2025-01-19 12:30)
DX: K63.5 Polyp of colon (principal); J45.909 Unspecified asthma, uncomplicated; F31.9 Bipolar disorder, unspecified; F17.200 Nicotine dependence, unspecified, uncomplicated; Z91.040 Latex allergy status; Z79.899 Other long term (current) drug therapy
CPT/HCPCS: 45385; 81025; J2003; J2704; J7120